=== PATIENT | female | born 1975 | race Caucasian/White ===

== ENCOUNTER 2020-09-26 08:34 | Emergency (ER) | payer SELFPAY ==
[~2020-09-26] VITALS: Ht 162.6 cm; Wt 63.6 kg
[2020-09-26 08:48] VITALS: TEMP 98.2
[2020-09-26 09:02] LABS: COLLECTION METHOD CLEAN CATCH
[2020-09-26 09:12] LABS: MUCOUS Present /lpf; PH 7 (5-8); URINE APPEARANCE Cloudy; URINE BACTERIA None Seen /hpf; URINE BILIRUBIN Negative (NEGATIVE); URINE BLOOD 1+ (NEGATIVE); URINE COLOR Yellow; URINE GLUCOSE Negative (NEGATIVE); URINE KETONE Trace (NEGATIVE); URINE LEUKOCYTE ESTERASE 3+ (NEGATIVE); URINE NITRATE Negative (NEGATIVE); URINE PROTEIN(semi-quant) 2+ (NEGATIVE); URINE UROBILINOGEN Negative (NEGATIVE)
[2020-09-26 09:31] LABS: BASO % 0.8 % (0.0-2.0); EOS % 0.4 % (0-4.0); GRAN # 3.7 (1.4-6.5); GRAN % 75.9 % (42.2-75.2); HEMOGLOBIN 10.7 g/dl (12.5-16.0); LYMPH # 0.7 (1.2-3.4); LYMPH % 15.3 % (20.0-51.0); MEAN CELL VOLUME 96 fl (80.0-100.0); MEAN CORPUSCULAR HEMOGLOBIN 28 pg (27.0-31.0); MEAN CORPUSCULAR HGB CONC 30 g/dl (33.0-37.0); MONO # 0.4 (0.1-0.6); MONO % 7.2 % (1.7-9.3); PLATELET COUNT 274 K/mm3 (130-400); REDCELL DISTRIBUTION WIDTH-CV 16.4 % (11.5-14.5)
[2020-09-26 09:32] LABS: HEMATOCRIT 36.3 % (37.0-47.0)
[2020-09-26 09:38] LABS: ALBUMIN 4.2 gm/dL (3.5-5.0); BILIRUBIN,TOTAL 0.2 mg/dL (0.0-1.0); CALCIUM 8.7 mg/dL (8.4-10.2); CREATININE, serum 0.82 (0.52-1.25); POTASSIUM 3.8 mmol/L (3.4-5.0)
[2020-09-26] MEDS ORDERED: CEPHALEXIN500 M1 PO (10:00)
[2020-09-26] MEDS ORDERED: VOLTAREN 75 DR75 MG PO (10:00)
[2020-09-26 10:24] VITALS: BP 107/78; PULSE 65
== END 2020-09-26 10:30 | disposition home or self-care (01) ==
LOC: COL.ER 08:34
PROVIDERS: Emergency Medicine
DX: N10 Acute pyelonephritis (principal)
CPT/HCPCS: J0696; J1885; J2405

== ENCOUNTER 2021-05-24 07:40 | Emergency (ER) | payer SELFPAY ==
[~2021-05-24] VITALS: Ht 160 cm; Wt 61.4 kg
[~2021-05-24 07:40] MED LIST: CEPHALEXIN500 M1 PO; VOLTAREN 75 DR75 MG PO
[2021-05-24 08:07] VITALS: TEMP 98.7
[2021-05-24 08:14] LABS: COLLECTION METHOD CLEAN CATCH
[2021-05-24 08:21] LABS: PH 6 (5-8); URINE APPEARANCE Hazy (CLEAR/HAZY); URINE BACTERIA Rare /hpf (NONE SEEN); URINE BILIRUBIN Negative (NEGATIVE); URINE BLOOD Negative (NEGATIVE); URINE COLOR Yellow (YELLOW); URINE GLUCOSE Negative (NEGATIVE); URINE KETONE Negative (NEGATIVE); URINE LEUKOCYTE ESTERASE 2+ (NEGATIVE); URINE NITRATE Negative (NEGATIVE); URINE PROTEIN(semi-quant) Negative (NEGATIVE); URINE RBC 0-2 /hpf (0-2); URINE UROBILINOGEN Negative (NEGATIVE)
[2021-05-24 08:40] LABS: BASO # 0.1 K/mm3 (0.0-0.2); EOS # 0.1 K/mm3 (0.0-0.7); EOS % 1.2 % (0.0-4.0); GRAN # 3.2 K/mm3 (1.4-6.5); GRAN % 63.8 % (42.2-75.2); LYMPH # 1.1 K/mm3 (1.2-3.4); LYMPH % 22.9 % (20.0-51.0); MEAN CELL VOLUME 83 fl (80.0-100.0); MEAN CORPUSCULAR HGB CONC 30 g/dl (33.0-37.0); MEAN PLATELET VOLUME 9.7 fl (7.4-10.4); MONO # 0.5 K/mm3 (0.1-0.6); MONO % 10.9 % (1.7-9.3); PLATELET COUNT 293 K/mm3 (130-400); RED BLOOD COUNT 3.99 M/mm3 (4.10-5.30); REDCELL DISTRIBUTION WIDTH-CV 15.7 % (11.5-14.5)
[2021-05-24 08:58] LABS: ALBUMIN 3.8 gm/dL (3.5-5.0); BILIRUBIN,TOTAL 0.3 mg/dL (0.2-1.2); C-REACTIVE PROTEIN 0.07 mg/dL (0.00-0.50); CALCIUM 8.8 mg/dL (8.4-10.2); CREATININE, serum 0.78 mg/dL (0.57-1.11); POTASSIUM 3.9 mmol/L (3.5-4.5); TOTAL PROTEIN 6.7 gm/dL (6.2-8.1)
[2021-05-24 09:07] LABS: HEMATOCRIT 33.1 % (37.0-47.0); HEMOGLOBIN 9.9 g/dl (12.5-16.0); MEAN CORPUSCULAR HEMOGLOBIN 25 pg (27-31)
[2021-05-24 09:30] VITALS: BP 138/82; PULSE 70
[2021-05-24] MEDS ORDERED: OMNICEF 300MG300 MG PO (09:31)
[2021-05-24] MEDS ORDERED: NORCO 325 MG-51 TAB PO (09:32)
== END 2021-05-24 09:52 | disposition home or self-care (01) ==
LOC: COL.ER 07:40
PROVIDERS: Family Medicine
DX: N12 Tubulo-interstitial nephritis, not specified as acute or chronic (principal); D50.9 Iron deficiency anemia, unspecified; Z87.442 Personal history of urinary calculi
CPT/HCPCS: J0696; J7120

== ENCOUNTER 2021-06-09 07:47 | Emergency (ER) | payer SELFPAY ==
[~2021-06-09] VITALS: Ht 160 cm; Wt 59.1 kg
[~2021-06-09 07:47] MED LIST changes: +NORCO 325 MG-51 TAB PO; +OMNICEF 300MG300 MG PO
[2021-06-09 07:51] VITALS: TEMP 98.4
[2021-06-09 08:03] LABS: COLLECTION METHOD CLEAN CATCH
[2021-06-09 08:11] LABS: MUCOUS Present (NOT PRESENT); PH 6 (5-8); URINE APPEARANCE Hazy (CLEAR/HAZY); URINE BACTERIA None Seen /hpf (NONE SEEN); URINE BILIRUBIN Negative (NEGATIVE); URINE BLOOD 1+ (NEGATIVE); URINE COLOR Yellow (YELLOW); URINE GLUCOSE Negative (NEGATIVE); URINE KETONE Negative (NEGATIVE); URINE LEUKOCYTE ESTERASE 3+ (NEGATIVE); URINE NITRATE Negative (NEGATIVE); URINE PROTEIN(semi-quant) Negative (NEGATIVE); URINE RBC 0-2 /hpf (0-2); URINE UROBILINOGEN Negative (NEGATIVE)
[2021-06-09 08:18] LABS: BASO # 0.1 K/mm3 (0.0-0.2); EOS # 0.1 K/mm3 (0.0-0.7); EOS % 1.2 % (0.0-4.0); GRAN # 3.5 K/mm3 (1.4-6.5); GRAN % 68.9 % (42.2-75.2); LYMPH % 20.1 % (20.0-51.0); MEAN CELL VOLUME 85 fl (80.0-100.0); MEAN CORPUSCULAR HEMOGLOBIN 26 pg (27-31); MEAN CORPUSCULAR HGB CONC 31 g/dl (33.0-37.0); MEAN PLATELET VOLUME 9.9 fl (7.4-10.4); MONO # 0.4 K/mm3 (0.1-0.6); MONO % 8.4 % (1.7-9.3); PLATELET COUNT 343 K/mm3 (130-400); RED BLOOD COUNT 4.19 M/mm3 (4.10-5.30); REDCELL DISTRIBUTION WIDTH-CV 19.9 % (11.5-14.5)
[2021-06-09 08:19] LABS: HEMATOCRIT 35.8 % (37.0-47.0)
[2021-06-09 08:44] LABS: ALBUMIN 3.9 gm/dL (3.5-5.0); BILIRUBIN,TOTAL 0.3 mg/dL (0.2-1.2); C-REACTIVE PROTEIN 0.04 mg/dL (0.00-0.50); CREATININE, serum 0.76 mg/dL (0.57-1.11); POTASSIUM 3.8 mmol/L (3.5-4.5); TOTAL PROTEIN 6.7 gm/dL (6.2-8.1)
[2021-06-09 09:17] VITALS: BP 107/77; PULSE 60
[2021-06-09] MEDS ORDERED: BACTRIM DS 8001 TAB PO (09:17)
[2021-06-09] MEDS ORDERED: NORCO 325 MG-51 TAB PO (09:17)
== END 2021-06-09 09:30 | disposition home or self-care (01) ==
LOC: COL.ER 07:47
PROVIDERS: Family Medicine
DX: N39.0 Urinary tract infection, site not specified (principal)
CPT/HCPCS: J1885; J2405; J7120; Q9967